=== PATIENT | male | born 1960 | race Caucasian/White ===

== ENCOUNTER 2018-04-30 10:04 | Inpatient (IN) | payer BC, OTHER ==
[2018-04-30 10:12] VITALS: BMI 31.4
--- NOTE | 2018-04-30 10:39 | PDOC ---
History of Present Illness - General Chief Complaint: Wound Stated Complaint: SWOLLEN TOE Time Seen by Provider: 04/30/18 10:35 History Source: Patient Exam Limitations: No Limitations - History of Present Illness Initial Comments: 04/30/18 11:50 Patient is a 58-year-old male past medical history of insulin dependent diabetes , who presents to the emergency department today for right foot pain and redness. Patient states approximately 8 days ago stubbed his right toe. He states after that he noticed redness and bruising to the site. Patient states that the foot and became warm and he was concerned he had an infection of the foot. He states that he was seen at [facility]. He was treated with 1 dose of IV antibiotics and sent home on Augmentin. Patient has taken 2 doses at home. He states that the redness has since gotten worse. He also states that the pain has gotten worse despite treatment. He states that his sugars have been generally well controlled. Denies fevers, chills, shortness of breath, nausea, vomiting, numbness and tingling to the extremity, weakness to the extremity. Past History - Travel Traveled outside of the country in the last 30 days: No Close contact w/someone who was outside of country & ill: No - Past Medical History Allergies/Adverse Reactions: Allergies Allergy/AdvReac Type Severity Reaction Status Date / Time No Known Allergies Allergy Verified 04/30/18 10:11 Home Medications: Ambulatory Orders Amoxicillin/Potassium Clav [Amox-Clav 875-125 mg Tablet] 1 each PO DAILY Aspirin [ASA -] 162 mg PO DAILY 04/30/18 Diltiazem Cd [Cardizem Cd -] 240 mg PO DAILY 04/30/18 Insulin Degludec [Tresiba Flextouch U-100] 30 unit SQ HS 04/30/18 Meloxicam [Mobic] 15 mg PO DAILY 04/30/18 Semaglutide [Ozempic] 0.25 mg SQ WEEKLY 04/30/18 Tramadol HCl [Ultram] 50 mg PO DAILY 04/30/18 COPD: No Diabetes: Yes HTN: Yes - Suicide/Smoking/Psychosocial Hx Smoking History: Never smoked Information on smoking cessation initiated: No Hx Alcohol Use: No Drug/Substance Use Hx: No Substance Use Type: None Review of Systems - Review of Systems Able to Perform ROS?: Yes Comments:: 04/30/18 10:38 CONSTITUTIONAL: Absent: fever, chills, diaphoresis, generalized weakness, malaise, loss of appetite HEENT: Absent: rhinorrhea, nasal congestion, throat pain, throat swelling, difficulty swallowing, mouth swelling, ear pain, eye pain, visual Changes CARDIOVASCULAR: Absent: chest pain, loss of consciousness, palpitations, irregular heart rate, peripheral edema RESPIRATORY: Absent: cough, shortness of breath, dyspnea with exertion, orthopnea, wheezing, stridor, hemoptysis GASTROINTESTINAL: Absent: abdominal pain, abdominal distension, nausea, vomiting, diarrhea, constipation, melena, hematochezia GENITOURINARY: Absent: dysuria, frequency, urgency, hesitancy, hematuria, flank pain, genital pain MUSCULOSKELETAL: Present: R foot pain/R fifth toe pain Absent: arthralgia, joint swelling SKIN: Present: redness to R foot Absent: rash, itching, pallor HEMATOLOGIC/IMMUNOLOGIC: Absent: easy bleeding, easy bruising, lymphadenopathy, frequent infections ENDOCRINE: Absent: unexplained weight gain, unexplained weight loss, heat intolerance, cold intolerance NEUROLOGIC: Absent: headache, focal weakness or paresthesias, dizziness, unsteady gait, seizure, mental status changes, bladder or bowel incontinence PSYCHIATRIC: Absent: anxiety, depression, suicidal or homicidal ideation, hallucinations. Is the patient limited Azeri proficient: No *Physical Exam - Vital Signs Last Vital Signs Temp Pulse Resp BP Pulse Ox 98.1 F 79 19 159/94 100 04/30/18 10:09 04/30/18 10:09 04/30/18 10:09 04/30/18 10:09 04/30/18 10:09 - Physical Exam Comments: 04/30/18 10:39 GENERAL: Well developed, well nourished. Awake and alert. No acute distress. HEENT: Normocephalic, atraumatic. PERRLA, EOMI. No conjunctival pallor. Sclera are non- icteric. Moist mucous membranes. Oropharynx is clear. NECK: Supple. Full ROM. No JVD. Carotid pulses 2+ and symmetric, without bruits. No thyromegaly. No lymphadenopathy. CARDIOVASCULAR: Regular rate and rhythm. No murmurs, rubs, or gallops. Distal pulses are 2+ and symmetric. PULMONARY: No evidence of respiratory distress. Lungs clear to auscultation bilaterally. No wheezing, rales or rhonchi. ABDOMINAL: Soft. Non-tender. Non-distended. No rebound or guarding. No organomegaly. Normoactive bowel sounds. MUSCULOSKELETAL Normal range of motion at all joints. TTP of the base of the 5th toe with bruising. No CVA tenderness. EXTREMITIES: No cyanosis. No clubbing. No edema. No calf tenderness. SKIN: Bruising to the base of the 5th toe. Erythema to the ventral aspect of the R 5th toe extending to the proximal foot measuring about 5cm ovoid in shape. Warm and dry. Normal capillary refill. No jaundice. NEUROLOGICAL: Alert, awake, appropriate. Cranial nerves 2-12 intact. No deficits to light touch and temperature in face, upper extremities and lower extremities. No motor deficits in the in face, upper extremities and lower extremities. Normoreflexic in the upper and lower extremities. Normal speech. Toes are down- going bilaterally. Gait is normal without ataxia. PSYCHIATRIC: Cooperative. Good eye contact. Appropriate mood and affect. ED Treatment Course - LABORATORY CBC & Chemistry Diagram: 04/30/18 11:30 04/30/18 11:30 Medical Decision Making - Medical Decision Making 04/30/18 11:52 Patient is a 58-year-old male past medical history of insulin-dependent diabetes , who presents to the emergency department today for right foot pain and redness status post 8 days after injury. -On exam patient with bruising and erythema to the right fifth toe streaking up the ventral aspect of the right foot extending to the base of the ankle. -Concerned for cellulitis/osteo in a diabetic patient; appears the patient has failed outpatient antibiotics reports worsening redness and pain. -Plan as follows: Labs, urine, EKG, IV antibiotics, pain control, foot x-ray -Most likely admission for failed outpatient management of cellulitis. 04/30/18 14:18 -WBC count is 13.8 despite out patient abx treatment. Oxycodone given for pain control -X-ray with no evidence of air, fracture, or osteo -Vanc 1g and zosyn 3.375g given for abx in ED -Non-fasting sugar 135 -Pt to be admitted for failed outpatient management. Case discussed with Dr. Alejandre from [facility] who accepts the patient. Requesting consults for ID and podietry at this time. *DC/Admit/Observation/Transfer Diagnosis at time of Disposition: Hx of insulin dependent diabetes mellitus Cellulitis Qualifiers: Site of cellulitis: extremity Site of cellulitis of extremity: lower extremity Laterality: right Qualified Code(s): L03.115 - Cellulitis of right lower limb - Discharge Dispostion Condition at time of disposition: Stable Decision to Admit order: Yes - Referrals Referrals: ON STAFF,NOT [Primary Care Provider] - - Patient Instructions - Post Discharge Activity
[2018-04-30] MEDS ORDERED: ACETAMINOPHEN 1000 MG/100 ML VIAL (NON FORMULARY) IVPB ONE (11:27)
--- NOTE | 2018-04-30 11:34 | PDOC ---
*Physical Exam - Vital Signs Last Vital Signs Temp Pulse Resp BP Pulse Ox 98.1 F 79 19 159/94 100 04/30/18 10:09 04/30/18 10:09 04/30/18 10:09 04/30/18 10:09 04/30/18 10:09 Medical Decision Making - Medical Decision Making 04/30/18 11:33 Pt seen by the Advanced Practice Provider under my direct supervision Ancillary studies reviewed I agree with plan as outlined by the Advanced Practice Provider GRECIA Iqbal
[2018-04-30] MEDS ORDERED: ACETAMINOPHEN INJECTION 100 ML IVPB ONE (11:41)
[2018-04-30 11:54] LABS: BASO % 0.3 % (0-2.0); EOS % 0.6 % (0-4.5); HEMATOCRIT 53.4 % (35.4-49); HEMOGLOBIN 17.8 GM/dL (11.7-16.9); LYMPH % 6.3 % (8-40); MCH 29.5 pg (25.7-33.7); MCHC 33.4 g/dl (32.0-35.9); MEAN CELL VOLUME 88.2 fl (80-96); MEAN PLT VOLUME 9.2 fl (7.5-11.1); MONO % 9.8 % (3.8-10.2); PLATELET COUNT 183 K/MM3 (134-434); RBC 6.05 M/mm3 (4.00-5.60); RDW 14.1 % (11.9-15.9); WHITE BLOOD COUNT 13.8 K/mm3 (4.0-10.0)
[2018-04-30 12:02] LABS: ALBUMIN 3.8 g/dl (3.4-5.0); ALK PHOS 87 U/L (45-117); ANION GAP 7 MMOL/L (8-16); BILIRUBIN,TOTAL 1.4 mg/dL (0.2-1); BLOOD UREA NITROGEN 33 mg/dL (7-18); CALCIUM 9.2 mg/dL (8.5-10.1); CHLORIDE 106 mmol/L (98-107); CO2 28 mmol/L (21-32); CREATININE 1.1 mg/dL (0.55-1.3); GLUCOSE,RANDOM 135 mg/dL (74-106); POTASSIUM 3.7 mmol/L (3.5-5.1); SGOT/AST 23 U/L (15-37); SGPT/ALT 36 U/L (13-61); SODIUM 141 mmol/L (136-145); TOT PROT 7.3 g/dl (6.4-8.2)
[2018-04-30] MEDS ORDERED: PIPERACILLIN/TAZOB 3.375 GM 3.375 GM in DEXTROSE 5%-WATER - 50 ML IVPB ONE (12:53)
[2018-04-30] MEDS ORDERED: VANCOMYCIN 1,000 MG in DEXTROSE 5%-WATER - 250 ML IVPB ONE (12:53)
[2018-04-30] MEDS ORDERED: PIPERACILLIN/TAZOB 3.375 GM 3.375 GM/50 ML BAG IVPB ONE (12:59)
[2018-04-30] MEDS ORDERED: oxyCODONE HCL 5 MG TABLET PO ONE (13:39)
[2018-04-30] MEDS ORDERED: VANCOMYCIN 1 GRAM (PRE-DOCKED) 1,000 MG/250 ML BAG IVPB ONE (14:03)
--- NOTE | 2018-04-30 14:09 | HP ---
Admitting History and Physical - Admission Chief Complaint: Rt Foot Pain and swelling History of Present Illness: 58 yrs old man h/o HTN, long standing T2DM on Insulin, present with gradually worsening Rt foot pain swelling and erythema, patient says 8 days ago noticed pain in Rt 5th toe developed some erythema and , swelling and pain , patient remained symptomatic didn't take any abx remained symptomatic swelling extended upward till ankle with erythema nd pain also noticed bluish discoloration came to ED for evaluation, in the Ed elevated TWBC with Left shift considering Dibetic foot infection admitted for IV abx and to R/O OM. History Source: Patient - Past Medical History Cardiovascular: Yes: HTN, Hyperlipdemia Endocrine: Yes: Diabetes Mellitus - Smoking History Smoking history: Never smoked - Alcohol/Substance Use Hx Alcohol Use: No - Social History ADL: Independent History of Recent Travel: No Home Medications - Allergies Allergies/Adverse Reactions: Allergies Allergy/AdvReac Type Severity Reaction Status Date / Time No Known Allergies Allergy Verified 04/30/18 10:11 - Home Medications Home Medications: Ambulatory Orders Amoxicillin/Potassium Clav [Amox-Clav 875-125 mg Tablet] 1 each PO DAILY Aspirin [ASA -] 162 mg PO DAILY 04/30/18 Diltiazem Cd [Cardizem Cd -] 240 mg PO DAILY 04/30/18 Insulin Degludec [Tresiba Flextouch U-100] 30 unit SQ HS 04/30/18 Meloxicam [Mobic] 15 mg PO DAILY 04/30/18 Semaglutide [Ozempic] 0.25 mg SQ WEEKLY 04/30/18 Tramadol HCl [Ultram] 50 mg PO DAILY 04/30/18 Family Disease History - Family Disease History Family Disease History: Diabetes: Grandparent Review of Systems - Review of Systems Constitutional: reports: Fever. denies: Chills, Diaphoresis, Lethargy Eyes: denies: Blind Spots HENT: denies: Difficult Swallowing, Ear Discharge Neck: denies: Decreased ROM, Lumps, Pain on Movement Cardiovascular: reports: Edema. denies: Chest Pain, Palpitations Respiratory: denies: Cough, Exercise Intolerance, Hemoptysis Gastrointestinal: denies: Abdominal Pain, Bloating, Constipation, Diarrhea Genitourinary: denies: Burning, Discharge, Dysuria Musculoskeletal: denies: Back Pain, Crepitus Integumentary: reports: Blister, Other (RT ffot Cellulitis) Neurological: denies: Change in Speech, Confusion Endocrine: denies: Excessive Sweating, Flushing, Increased Hunger Psychiatric: denies: Altered Sleep Pattern, Anxiety, Depression Pain Intensity: 6 Physical Examination Vital Signs: Vital Signs Temperature 98.1 F 04/30/18 10:09 Pulse Rate 79 04/30/18 10:09 Respiratory Rate 19 04/30/18 10:09 Blood Pressure 159/94 04/30/18 10:09 O2 Sat by Pulse Oximetry (%) 100 04/30/18 10:09 Middle aged man not in distress HEENT: Mm moist no anemia, PERRLA, EOMI NECK: No JVD No Bruit CHEST: CTA B/L CVS: S1S2 R no m/g/r ABD: No distention, non tender Bs + EXT: Rt foot erythema and swelling on dorsum of foot arising from dorsal aspect of fth and 4tg toe with some blackening of skin pulses +, no sensory loss. 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 Labs: CBC, BMP CBC,CMP WBC 13.8 K/mm3 (4.0-10.0) H 04/30/18 11:30 RBC 6.05 M/mm3 (4.00-5.60) H 04/30/18 11:30 Hgb 17.8 GM/dL (11.7-16.9) H 04/30/18 11:30 Hct 53.4 % (35.4-49) H 04/30/18 11:30 MCV 88.2 fl (80-96) 04/30/18 11:30 MCH 29.5 pg (25.7-33.7) 04/30/18 11:30 MCHC 33.4 g/dl (32.0-35.9) 04/30/18 11:30 RDW 14.1 % (11.9-15.9) 04/30/18 11:30 Plt Count 183 K/MM3 (134-434) 04/30/18 11:30 MPV 9.2 fl (7.5-11.1) 04/30/18 11:30 Absolute Neuts (auto) 11.5 K/mm3 (1.5-8.0) H 04/30/18 11:30 Neutrophils % 83.0 % (42.8-82.8) H 04/30/18 11:30 Lymphocytes % 6.3 % (8-40) L 04/30/18 11:30 Monocytes % 9.8 % (3.8-10.2) 04/30/18 11:30 Eosinophils % 0.6 % (0-4.5) 04/30/18 11:30 Basophils % 0.3 % (0-2.0) 04/30/18 11:30 Nucleated RBC % 0 % (0-0) 04/30/18 11:30 Sodium 141 mmol/L (136-145) 04/30/18 11:30 Potassium 3.7 mmol/L (3.5-5.1) 04/30/18 11:30 Chloride 106 mmol/L (98-107) 04/30/18 11:30 Carbon Dioxide 28 mmol/L (21-32) 04/30/18 11:30 Anion Gap 7 MMOL/L (8-16) L 04/30/18 11:30 BUN 33 mg/dL (7-18) H 04/30/18 11:30 Creatinine 1.1 mg/dL (0.55-1.3) 04/30/18 11:30 Creat Clearance w eGFR > 60 (>60) 04/30/18 11:30 Random Glucose 135 mg/dL (74-106) H 04/30/18 11:30 Lactic Acid 1.2 mmol/L (0.4-2.0) 04/30/18 11:30 Calcium 9.2 mg/dL (8.5-10.1) 04/30/18 11:30 Total Bilirubin 1.4 mg/dL (0.2-1) H 04/30/18 11:30 AST 23 U/L (15-37) 04/30/18 11:30 ALT 36 U/L (13-61) 04/30/18 11:30 Alkaline Phosphatase 87 U/L (45-117) 04/30/18 11:30 Total Protein 7.3 g/dl (6.4-8.2) 04/30/18 11:30 Albumin 3.8 g/dl (3.4-5.0) 04/30/18 11:30 Imaging - Results Chest X-ray: Report Reviewed (Rt Foot: No acute Pathology) X-ray: Report Reviewed EKG: Report Reviewed (NSR aat [address]-t changes poor progression of r wave no basline available for comparison) Problem List - Problems (1) Cellulitis Assessment/Plan: Considering H/O DM and risk of polymicrobial organism, ID consult for empiric abx overage, Podiatry consult F/U ESR CRP Code(s): L03.90 - CELLULITIS, UNSPECIFIED Qualifiers: Site of cellulitis: extremity Site of cellulitis of extremity: lower extremity Laterality: right Qualified Code(s): L03.115 - Cellulitis of right lower limb (2) T2DM (type 2 diabetes mellitus) Assessment/Plan: on Insulin will F/U switch to Levimir and correction dose insulin Code(s): E11.9 - TYPE 2 DIABETES MELLITUS WITHOUT COMPLICATIONS (3) Dehydration Assessment/Plan: Elevated BUN, IV Hydration F/U BMP Code(s): E86.0 - DEHYDRATION (4) HTN (hypertension) Assessment/Plan: Resume all home meds Code(s): I10 - ESSENTIAL (PRIMARY) HYPERTENSION
[2018-04-30] MEDS ORDERED: ACETAMINOPHEN 1000 MG/100 ML VIAL (NON FORMULARY) IVPB PRN (14:53)
[2018-04-30] MEDS ORDERED: IBUPROFEN 400 MG TABLET (FP) PO PRN (14:53)
--- NOTE | 2018-04-30 17:10 | EKG ---
Test Reason : Blood Pressure : / mmHG Vent. Rate : 072 BPM Atrial Rate : 072 BPM P-R Int : 162 ms QRS Dur : 106 ms QT Int : 388 ms P-R-T Axes : 037 -51 -15 degrees QTc Int : 424 ms NORMAL SINUS RHYTHM LEFT AXIS DEVIATION ABNORMAL ECG NO PREVIOUS ECGS AVAILABLE Confirmed by GEETA DAS MD ([id number]) on 04/30/2018 5:10:22 PM Referred By: Confirmed By:GEETA DAS MD
[2018-04-30] MEDS ORDERED: SODIUM CHLORIDE 1,000 ML IV SCH (18:15)
--- NOTE | 2018-04-30 18:33 | PN ---
Progress Note (short form) - Note Progress Note: ID consult dictated cellulitis R foot leukocytosis R/O sepsis secondary to skin source R/O osteomyelitis Diabetes mellitus Await c/s ESR CRP Empiric vancomycin/ zosyn
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
[2018-04-30] MEDS: VANCOMYCIN 1 GRAM (PRE-DOCKED) 1,000 MG/250 ML BAG IVPB SCH (19:00)
[2018-04-30] MEDS ORDERED: traMADol HCL 50 MG TABLET PO ONE (21:11)
[2018-04-30] MEDS: INSULIN SLIDING SCALE (NOVOLOG) 1 VIAL SQ SCH (21:20)
[2018-04-30] MEDS ORDERED: INSULIN (LEVEMIR) 100 UNITS/ML UNITS SQ SCH (22:00)
[2018-05-01] MEDS ORDERED: PIPERACILLIN/TAZOBACTAM 3.375 GM VIAL IVPB ONE ×3 (01:09→16:54)
[2018-05-01] MEDS ORDERED: DEXTROSE 5%-WATER - 50 ML IVPB ONE ×3 (01:10→16:54)
[2018-05-01] MEDS: PIPERACILLIN/TAZOB 3.375 GM 3.375 GM in DEXTROSE 5%-WATER - 50 ML IVPB SCH ×3 (01:31→17:03)
[2018-05-01] MEDS: VANCOMYCIN 1 GRAM (PRE-DOCKED) 1,000 MG/250 ML BAG IVPB SCH ×2 (06:02→17:34)
[2018-05-01] MEDS: INSULIN SLIDING SCALE (NOVOLOG) 1 VIAL SQ SCH ×3 (06:20→16:24)
[2018-05-01 07:41] LABS: BASO % 0.4 % (0-2.0); EOS % 1.3 % (0-4.5); HEMATOCRIT 49.9 % (35.4-49); HEMOGLOBIN 16.9 GM/dL (11.7-16.9); LYMPH % 9.7 % (8-40); MCH 30.2 pg (25.7-33.7); MEAN PLT VOLUME 9.1 fl (7.5-11.1); MONO % 9.9 % (3.8-10.2); NEUT % 78.7 % (42.8-82.8); PLATELET COUNT 173 K/MM3 (134-434); RDW 13.8 % (11.9-15.9); WHITE BLOOD COUNT 10.1 K/mm3 (4.0-10.0)
[2018-05-01 07:44] LABS: ALBUMIN 3.2 g/dl (3.4-5.0); ALK PHOS 76 U/L (45-117); ANION GAP 5 MMOL/L (8-16); BILIRUBIN,TOTAL 0.9 mg/dL (0.2-1); BLOOD UREA NITROGEN 24 mg/dL (7-18); CALCIUM 8.1 mg/dL (8.5-10.1); CHLORIDE 108 mmol/L (98-107); CO2 30 mmol/L (21-32); CREATININE 0.9 mg/dL (0.55-1.3); GLUCOSE,RANDOM 78 mg/dL (74-106); POTASSIUM 4.3 mmol/L (3.5-5.1); SGOT/AST 20 U/L (15-37); SGPT/ALT 28 U/L (13-61); SODIUM 144 mmol/L (136-145); TOT PROT 6.3 g/dl (6.4-8.2)
[2018-05-01] MEDS ORDERED: traMADol HCL 50 MG TABLET PO PRN (08:54)
[2018-05-01] MEDS: traMADol HCL 50 MG TABLET PO PRN ×4 (09:00→21:04)
--- NOTE | 2018-05-01 09:05 | PN ---
Progress Note, Physician Chief Complaint: Mr Leary complains of pain in his left foot. No cp, sob, n/v. - Current Medication List Current Medications: Active Medications Acetaminophen (Ofirmev Injection -) 1,000 mg IVPB Q6H PRN PRN Reason: PAIN LEVEL 6-10 Last Admin: 04/30/18 20:06 Dose: 1,000 mg Aspirin (Asa -) 162 mg PO DAILY [facility] Diltiazem HCl (Cardizem Cd -) 240 mg PO DAILY [facility] Sodium Chloride (Normal Saline -) 1,000 mls @ 75 mls/hr IV ASDIR [facility] Last Admin: 04/30/18 18:58 Dose: 75 mls/hr Vancomycin HCl (Vancomycin (Pre-Docked)) 1,000 mg in 250 mls @ 166.667 mls/hr IVPB Q12H [facility]; Protocol Last Admin: 05/01/18 06:02 Dose: 166.667 mls/hr Piperacillin Sod/Tazobactam (Sod 3.375 gm/ Dextrose) 50 mls @ 100 mls/hr IVPB Q8H-IV [facility]; Protocol Last Admin: 05/01/18 01:31 Dose: 100 mls/hr Ibuprofen (Motrin -) 400 mg PO Q8H PRN PRN Reason: PAIN LEVEL 1-5 Last Admin: 05/01/18 06:13 Dose: 400 mg Insulin Aspart (Novolog Vial Sliding Scale -) 1 vial SQ TIDAC [facility]; Protocol Last Admin: 05/01/18 06:20 Dose: Not Given Insulin Detemir (Levemir Vial) 30 units SQ HS [facility] Last Admin: 04/30/18 21:22 Dose: 30 units Tramadol HCl (Ultram -) 50 mg PO Q4H PRN PRN Reason: PAIN LEVEL 6-10 - Objective Vital Signs: Vital Signs Temperature 36.7 C 05/01/18 05:59 Pulse Rate 68 05/01/18 05:59 Respiratory Rate 20 05/01/18 05:59 Blood Pressure 140/77 05/01/18 05:59 O2 Sat by Pulse Oximetry (%) 98 04/30/18 15:25 Constitutional: Yes: No Distress, Calm, Obese Cardiovascular: Yes: Regular Rate and Rhythm. No: Gallop, Murmur, Rub Respiratory: Yes: Regular, CTA Bilaterally. No: Rales, Rhonchi, Wheezes Gastrointestinal: Yes: Normal Bowel Sounds, Soft. No: Distention, Tenderness Extremities: Yes: Other (ulceration between 4-5 RLE phalanges with blackness) Edema: No Labs: CBC, BMP 05/01/18 06:00 05/01/18 06:00 Problem List - Problems (1) Cellulitis Assessment/Plan: -dark redness with ulceration in between 4-5 phalanges -continue vancomycin and zosyn -lower suspicion for osteomyelitis but follow up ESR -ID following -podiatry consulted Code(s): L03.90 - CELLULITIS, UNSPECIFIED Qualifiers: Site of cellulitis: extremity Site of cellulitis of extremity: lower extremity Laterality: right Qualified Code(s): L03.115 - Cellulitis of right lower limb (2) Dehydration Assessment/Plan: -much improved -stop IVF and encourage po intake Code(s): E86.0 - DEHYDRATION (3) HTN (hypertension) Assessment/Plan: -continue cardizem -elevated, ? secondary to pain and/or IVF -stop IVF -control pain -may need additional antihypertensive -consider adding ARB Code(s): I10 - ESSENTIAL (PRIMARY) HYPERTENSION (4) T2DM (type 2 diabetes mellitus) Assessment/Plan: -continue current regimen -well controlled Code(s): E11.9 - TYPE 2 DIABETES MELLITUS WITHOUT COMPLICATIONS
[2018-05-01] MEDS ORDERED: ASPIRIN 81 MG CHEWABLE TABLETS PO SCH (10:00)
[2018-05-01] MEDS ORDERED: traMADol HCL 50 MG TABLET PO SCH (10:00)
--- NOTE | 2018-05-01 11:32 | CONSULT ---
Consult Consult Specialty:: Podiatry Reason for Consultation:: Abscess right foot - History of Present Illness Chief Complaint: Banged his foot and scratched in between his toes 4&5 right 8- 9 days ago. No improvement referred by Dr. Ribeiro to [facility]. - History Source History Provided By: Patient Limitations to Obtaining History: No Limitations - Past Medical History Cardio/Vascular: Yes: HTN, Hyperlipdemia Endocrine: Yes: Diabetes Mellitus - Alcohol/Substance Use Hx Alcohol Use: No - Smoking History Smoking history: Never smoked - Social History ADL: Independent History of Recent Travel: No Home Medications - Allergies Allergies/Adverse Reactions: Allergies Allergy/AdvReac Type Severity Reaction Status Date / Time No Known Allergies Allergy Verified 04/30/18 10:11 - Home Medications Home Medications: Ambulatory Orders Amoxicillin/Potassium Clav [Amox-Clav 875-125 mg Tablet] 1 each PO DAILY Aspirin [ASA -] 162 mg PO DAILY 04/30/18 Diltiazem Cd [Cardizem Cd -] 240 mg PO DAILY 04/30/18 Insulin Degludec [Tresiba Flextouch U-100] 30 unit SQ HS 04/30/18 Meloxicam [Mobic] 15 mg PO DAILY 04/30/18 Semaglutide [Ozempic] 0.25 mg SQ WEEKLY 04/30/18 Tramadol HCl [Ultram] 50 mg PO DAILY 04/30/18 Family Disease History - Family Disease History Family Disease History: Diabetes: Grandparent, Father Physical Exam Vital Signs: Vital Signs Temperature 98.4 F 05/01/18 09:00 Pulse Rate 66 05/01/18 09:00 Respiratory Rate 20 05/01/18 09:00 Blood Pressure 157/85 05/01/18 09:00 O2 Sat by Pulse Oximetry (%) 99 05/01/18 09:00 Wound/Incision: Yes: Other (abscess 4th interspace right, +severe tender, discoloration of medial 5th toe,) Labs: CBC, BMP 05/01/18 06:00 05/01/18 06:00 Assessment/Plan severe pain abscess Discussed options and risks. Pt fully understood and agreed to immediate I&D due to pain and color changes of his toe as he wanted to try to save toe. Verbally consented to I&D. Had breakfast so agreed to straight local procedure.
[2018-05-01] MEDS ORDERED: BUPIVACAINE HCL/PF 0.5% (5MG/ML) 10 ML VIAL ONE (11:33)
[2018-05-01] MEDS ORDERED: LIDOCAINE HCL 1%, 10 MG/ML (20ML VIAL) ONE (11:33)
[2018-05-01] MEDS ORDERED: LIDOCAINE HCL 1%, 10 MG/ML (50 mL VIAL) IJ ONE ×3 (12:03)
[2018-05-01] MEDS ORDERED: BUPIVACAINE HCL/PF 0.5% (5MG/ML) 10 ML VIAL IJ ONE ×2 (12:03)
[2018-05-01] MEDS ORDERED: ACETAMINOPHEN WITH CODEINE 300MG/30MG TABLET PO PRN (12:58)
[2018-05-01] MEDS ORDERED: ACETAMINOPHEN 1000 MG/100 ML VIAL (NON FORMULARY) IVPB PRN (13:45)
[2018-05-01] MEDS: SODIUM CHLORIDE 1,000 ML IV SCH (14:46)
--- NOTE | 2018-05-01 15:05 | PN ---
Progress Note (short form) - Note Progress Note: S/P I&D R foot abscess Post op dressing in place C/O R foot pain No c/o fever/ chills Tolerating antibiotics Afebrile WBC improved 10.1 Cultures pending Anicteric cor S1S2 Lungs clear abdomen soft, non tender post op dressing in place R foot ESR 8 CRP 3.3 S/P I&D R foot abscess Diabetes mellitus Await operative cultures Continue empiric zosyn/ vancomycin
--- NOTE | 2018-05-01 20:21 | OP ---
Operative Note - Note: Operative Date: 05/01/18 Pre-Operative Diagnosis: Abscess right foot Operation: Incision and drainage of abscess. 06/26" packing. wound culture deep Findings: abscess 4th interspace Post-Operative Diagnosis: Same as Pre-op Surgeon: Sravanthi Crane Anesthesia: Local Estimated Blood Loss (mls): 10 Drains & Tubes with Location: 06/26" plain packing Operative Report Dictated: Yes
[2018-05-01] MEDS: INSULIN (LEVEMIR) 100 UNITS/ML UNITS SQ SCH (21:04)
[2018-05-01] MEDS: ZOLPIDEM TARTRATE 5 MG TABLET PO PRN (21:04)
[2018-05-02] MEDS ORDERED: PIPERACILLIN/TAZOBACTAM 3.375 GM VIAL IVPB ONE ×3 (01:12→16:42)
[2018-05-02] MEDS ORDERED: DEXTROSE 5%-WATER - 50 ML IVPB ONE ×3 (01:12→16:42)
[2018-05-02] MEDS: PIPERACILLIN/TAZOB 3.375 GM 3.375 GM in DEXTROSE 5%-WATER - 50 ML IVPB SCH ×3 (01:51→16:59)
[2018-05-02] MEDS: SODIUM CHLORIDE 1,000 ML IV SCH ×2 (01:52→19:32)
[2018-05-02] MEDS: VANCOMYCIN 1 GRAM (PRE-DOCKED) 1,000 MG/250 ML BAG IVPB SCH ×2 (06:01→19:32)
[2018-05-02] MEDS: INSULIN SLIDING SCALE (NOVOLOG) 1 VIAL SQ SCH ×3 (06:43→16:58)
[2018-05-02] MEDS: traMADol HCL 50 MG TABLET PO PRN ×3 (07:51→20:13)
[2018-05-02 08:05] LABS: BASO % 0.2 % (0-2.0); EOS % 0.4 % (0-4.5); HEMATOCRIT 52.3 % (35.4-49); HEMOGLOBIN 17.4 GM/dL (11.7-16.9); LYMPH % 12.4 % (8-40); MCH 29.4 pg (25.7-33.7); MCHC 33.3 g/dl (32.0-35.9); MEAN CELL VOLUME 88.2 fl (80-96); MEAN PLT VOLUME 8.9 fl (7.5-11.1); MONO % 8.2 % (3.8-10.2); NEUT % 78.8 % (42.8-82.8); PLATELET COUNT 198 K/MM3 (134-434); RBC 5.93 M/mm3 (4.00-5.60); RDW 14.1 % (11.9-15.9); WHITE BLOOD COUNT 12.4 K/mm3 (4.0-10.0)
[2018-05-02 08:29] LABS: ANION GAP 8 MMOL/L (8-16); BLOOD UREA NITROGEN 16 mg/dL (7-18); CALCIUM 8.2 mg/dL (8.5-10.1); CHLORIDE 107 mmol/L (98-107); CO2 28 mmol/L (21-32); CREATININE 0.8 mg/dL (0.55-1.3); GLUCOSE,RANDOM 123 mg/dL (74-106); MAGNESIUM 2.1 mg/dL (1.8-2.4); PHOSPHOROUS 3.4 mg/dL (2.5-4.9); SODIUM 143 mmol/L (136-145)
--- NOTE | 2018-05-02 09:51 | PN ---
Progress Note (short form) - Note Progress Note: Patient seen in bed. Pain has greatly improved. vss, tmax 98.2 +dressing clean dry and intact normal post op Dressing change and packing pull tomorrow.
[2018-05-02] MEDS: ASPIRIN 81 MG CHEWABLE TABLETS PO SCH (10:56)
--- NOTE | 2018-05-02 11:07 | PN ---
Progress Note, Physician Chief Complaint: Mr Leary says the pain is much improved, mainly feels it when his foot hangs off the bed. Denies cp, sob, n/v. - Current Medication List Current Medications: Active Medications Acetaminophen (Ofirmev Injection -) 1,000 mg IVPB Q6H PRN PRN Reason: PAIN LEVEL 6-10 Aspirin (Asa -) 162 mg PO DAILY [facility] Last Admin: 05/02/18 10:56 Dose: 81 mg Diltiazem HCl (Cardizem Cd -) 240 mg PO DAILY [facility] Last Admin: 05/02/18 10:56 Dose: 240 mg Sodium Chloride (Normal Saline -) 1,000 mls @ 75 mls/hr IV ASDIR [facility] Last Admin: 05/02/18 01:52 Dose: 75 mls/hr Vancomycin HCl (Vancomycin (Pre-Docked)) 1,000 mg in 250 mls @ 166.667 mls/hr IVPB Q12H [facility]; Protocol Last Admin: 05/02/18 06:01 Dose: 166.667 mls/hr Piperacillin Sod/Tazobactam (Sod 3.375 gm/ Dextrose) 50 mls @ 100 mls/hr IVPB Q8H-IV [facility]; Protocol Last Admin: 05/02/18 10:55 Dose: 100 mls/hr Insulin Aspart (Novolog Vial Sliding Scale -) 1 vial SQ TIDAC [facility]; Protocol Last Admin: 05/02/18 06:43 Dose: Not Given Insulin Detemir (Levemir Vial) 30 units SQ HS [facility] Last Admin: 05/01/18 21:04 Dose: 30 units Tramadol HCl (Ultram -) 50 mg PO Q4H PRN PRN Reason: PAIN 6-10; IF TYLENOL NT WORK Last Admin: 05/02/18 07:51 Dose: 50 mg Zolpidem Tartrate (Ambien -) 5 mg PO HS PRN PRN Reason: INSOMNIA Last Admin: 05/01/18 21:04 Dose: 5 mg - Objective Vital Signs: Vital Signs Temperature 36.6 C 05/02/18 06:01 Pulse Rate 69 05/02/18 06:01 Respiratory Rate 18 05/02/18 06:01 Blood Pressure 138/84 05/02/18 06:01 O2 Sat by Pulse Oximetry (%) 98 05/01/18 21:00 Constitutional: Yes: Well Nourished, No Distress, Calm Cardiovascular: Yes: Regular Rate and Rhythm. No: Gallop, Murmur, Rub Respiratory: Yes: Regular, CTA Bilaterally. No: Rales, Rhonchi, Wheezes Gastrointestinal: Yes: Normal Bowel Sounds, Soft. No: Distention, Tenderness Extremities: Yes: WNL Edema: No Labs: CBC, BMP 05/02/18 06:50 05/02/18 06:50 Problem List - Problems (1) Cellulitis Code(s): L03.90 - CELLULITIS, UNSPECIFIED Qualifiers: Site of cellulitis: extremity Site of cellulitis of extremity: lower extremity Laterality: right Qualified Code(s): L03.115 - Cellulitis of right lower limb (2) Dehydration Code(s): E86.0 - DEHYDRATION (3) HTN (hypertension) Code(s): I10 - ESSENTIAL (PRIMARY) HYPERTENSION (4) T2DM (type 2 diabetes mellitus) Code(s): E11.9 - TYPE 2 DIABETES MELLITUS WITHOUT COMPLICATIONS Assessment/Plan (1) Cellulitis Assessment/Plan: -appreciate podiatry assistance, s/p I&D -wound culture pending -continue vancomycin and zosyn per ID recommendations Code(s): L03.90 - CELLULITIS, UNSPECIFIED Qualifiers: Site of cellulitis: extremity Site of cellulitis of extremity: lower extremity Laterality: right Qualified Code(s): L03.115 - Cellulitis of right lower limb (2) Dehydration Assessment/Plan: -resolved Code(s): E86.0 - DEHYDRATION (3) HTN (hypertension) Assessment/Plan: -continue cardizem -improved today -monitor, may not need second agent Code(s): I10 - ESSENTIAL (PRIMARY) HYPERTENSION (4) T2DM (type 2 diabetes mellitus) Assessment/Plan: -continue current regimen -well controlled Code(s): E11.9 - TYPE 2 DIABETES MELLITUS WITHOUT COMPLICATIONS
--- NOTE | 2018-05-02 13:41 | PN ---
Progress Note, Physician History of Present Illness: C/O R foot pain when held in dependent position No c/o fever/ chills Cultures pending Tolerating antibiotics - Current Medication List Current Medications: Active Medications Acetaminophen (Ofirmev Injection -) 1,000 mg IVPB Q6H PRN PRN Reason: PAIN LEVEL 6-10 Aspirin (Asa -) 162 mg PO DAILY [facility] Last Admin: 05/02/18 10:56 Dose: 81 mg Diltiazem HCl (Cardizem Cd -) 240 mg PO DAILY [facility] Last Admin: 05/02/18 10:56 Dose: 240 mg Sodium Chloride (Normal Saline -) 1,000 mls @ 75 mls/hr IV ASDIR [facility] Last Admin: 05/02/18 01:52 Dose: 75 mls/hr Vancomycin HCl (Vancomycin (Pre-Docked)) 1,000 mg in 250 mls @ 166.667 mls/hr IVPB Q12H [facility]; Protocol Last Admin: 05/02/18 06:01 Dose: 166.667 mls/hr Piperacillin Sod/Tazobactam (Sod 3.375 gm/ Dextrose) 50 mls @ 100 mls/hr IVPB Q8H-IV [facility]; Protocol Last Admin: 05/02/18 10:55 Dose: 100 mls/hr Insulin Aspart (Novolog Vial Sliding Scale -) 1 vial SQ TIDAC [facility]; Protocol Last Admin: 05/02/18 13:34 Dose: Not Given Insulin Detemir (Levemir Vial) 30 units SQ HS [facility] Last Admin: 05/01/18 21:04 Dose: 30 units Tramadol HCl (Ultram -) 50 mg PO Q4H PRN PRN Reason: PAIN 6-10; IF TYLENOL NT WORK Last Admin: 05/02/18 07:51 Dose: 50 mg Zolpidem Tartrate (Ambien -) 5 mg PO HS PRN PRN Reason: INSOMNIA Last Admin: 05/01/18 21:04 Dose: 5 mg - Objective Vital Signs: Vital Signs Temperature 98.7 F 05/02/18 13:27 Pulse Rate 75 05/02/18 13:27 Respiratory Rate 18 05/02/18 13:27 Blood Pressure 154/96 05/02/18 13:27 O2 Sat by Pulse Oximetry (%) 98 05/01/18 21:00 Constitutional: Yes: No Distress Eyes: Yes: Conjunctiva Clear Cardiovascular: Yes: Regular Rate and Rhythm, S1, S2 Respiratory: Yes: CTA Bilaterally Gastrointestinal: Yes: Normal Bowel Sounds, Soft. No: Tenderness Extremities: Yes: Other (post op dressing in place) Labs: CBC, BMP 05/02/18 06:50 05/02/18 06:50 Assessment/Plan S/P I&D R foot abscess Cellulitis, foot Diabetes mellitus Await c/s Continue vancomycin/ zosyn
[2018-05-02] MEDS ORDERED: POTASSIUM CHLORIDE TABS 20 MEQ TABLET.ER (FP) PO ONE ×2 (21:30→23:33)
[2018-05-02] MEDS: KCL 10 MEQ IVPB 10 MEQ/100 ML INFUS.BAG IVPB SCH ×3 (21:40→23:23)
[2018-05-02] MEDS: INSULIN (LEVEMIR) 100 UNITS/ML UNITS SQ SCH (21:45)
[2018-05-02] MEDS: ZOLPIDEM TARTRATE 5 MG TABLET PO PRN (21:46)
[2018-05-03] MEDS ORDERED: PIPERACILLIN/TAZOBACTAM 3.375 GM VIAL IVPB ONE ×3 (01:06→17:02)
[2018-05-03] MEDS ORDERED: DEXTROSE 5%-WATER - 50 ML IVPB ONE ×3 (01:07→17:03)
[2018-05-03] MEDS: PIPERACILLIN/TAZOB 3.375 GM 3.375 GM in DEXTROSE 5%-WATER - 50 ML IVPB SCH ×3 (01:21→17:08)
[2018-05-03] MEDS: traMADol HCL 50 MG TABLET PO PRN ×4 (05:46→22:25)
[2018-05-03] MEDS: VANCOMYCIN 1 GRAM (PRE-DOCKED) 1,000 MG/250 ML BAG IVPB SCH ×2 (05:47→18:29)
[2018-05-03] MEDS: INSULIN SLIDING SCALE (NOVOLOG) 1 VIAL SQ SCH ×3 (06:39→17:09)
[2018-05-03 08:25] LABS: BASO % 0.7 % (0-2.0); EOS % 3.9 % (0-4.5); HEMATOCRIT 47.9 % (35.4-49); HEMOGLOBIN 16.1 GM/dL (11.7-16.9); LYMPH % 17.7 % (8-40); MCH 29.7 pg (25.7-33.7); MCHC 33.7 g/dl (32.0-35.9); MEAN CELL VOLUME 88.3 fl (80-96); MEAN PLT VOLUME 8.5 fl (7.5-11.1); MONO % 10.5 % (3.8-10.2); NEUT % 67.2 % (42.8-82.8); PLATELET COUNT 171 K/MM3 (134-434); RBC 5.42 M/mm3 (4.00-5.60); RDW 13.8 % (11.9-15.9); WHITE BLOOD COUNT 7.1 K/mm3 (4.0-10.0)
[2018-05-03 08:32] LABS: ANION GAP 6 MMOL/L (8-16); BLOOD UREA NITROGEN 15 mg/dL (7-18); CHLORIDE 110 mmol/L (98-107); CO2 28 mmol/L (21-32); CREATININE 0.9 mg/dL (0.55-1.3); GLUCOSE,RANDOM 134 mg/dL (74-106); MAGNESIUM 2.4 mg/dL (1.8-2.4); PHOSPHOROUS 2.2 mg/dL (2.5-4.9); SODIUM 144 mmol/L (136-145)
[2018-05-03] MEDS: ASPIRIN 81 MG CHEWABLE TABLETS PO SCH (09:38)
[2018-05-03] MEDS ORDERED: POTASSIUM CHLORIDE TABS 20 MEQ TABLET.ER (FP) PO SCH (10:00)
--- NOTE | 2018-05-03 11:56 | PN ---
Progress Note, Physician Chief Complaint: Mr Leary denies cp, sob, n/v. - Current Medication List Current Medications: Active Medications Acetaminophen (Ofirmev Injection -) 1,000 mg IVPB Q6H PRN PRN Reason: PAIN LEVEL 6-10 Aspirin (Asa -) 162 mg PO DAILY [facility] Last Admin: 05/03/18 09:38 Dose: 162 mg Diltiazem HCl (Cardizem Cd -) 240 mg PO DAILY [facility] Last Admin: 05/03/18 09:38 Dose: 240 mg Sodium Chloride (Normal Saline -) 1,000 mls @ 75 mls/hr IV ASDIR [facility] Last Admin: 05/02/18 19:32 Dose: 75 mls/hr Vancomycin HCl (Vancomycin (Pre-Docked)) 1,000 mg in 250 mls @ 166.667 mls/hr IVPB Q12H [facility]; Protocol Last Admin: 05/03/18 05:47 Dose: 166.667 mls/hr Piperacillin Sod/Tazobactam (Sod 3.375 gm/ Dextrose) 50 mls @ 100 mls/hr IVPB Q8H-IV [facility]; Protocol Last Admin: 05/03/18 09:39 Dose: 100 mls/hr Insulin Aspart (Novolog Vial Sliding Scale -) 1 vial SQ TIDAC [facility]; Protocol Last Admin: 05/03/18 06:39 Dose: Not Given Insulin Detemir (Levemir Vial) 30 units SQ HS [facility] Last Admin: 05/02/18 21:45 Dose: 30 units Potassium Phos/Sodium Phos (Phos-Nak Packet -) 1 packet PO DAILY [facility] Tramadol HCl (Ultram -) 50 mg PO Q4H PRN PRN Reason: PAIN 6-10; IF TYLENOL NT WORK Last Admin: 05/03/18 09:39 Dose: 50 mg Zolpidem Tartrate (Ambien -) 5 mg PO HS PRN PRN Reason: INSOMNIA Last Admin: 05/02/18 21:46 Dose: 5 mg - Objective Vital Signs: Vital Signs Temperature 36.7 C 05/03/18 05:42 Pulse Rate 69 05/03/18 05:42 Respiratory Rate 18 05/03/18 05:42 Blood Pressure 144/82 05/03/18 05:42 O2 Sat by Pulse Oximetry (%) 98 05/01/18 21:00 Constitutional: Yes: No Distress, Calm, Obese Cardiovascular: Yes: Regular Rate and Rhythm. No: Gallop, Murmur, Rub Respiratory: Yes: Regular, CTA Bilaterally. No: Rales, Rhonchi, Wheezes Gastrointestinal: Yes: Normal Bowel Sounds, Soft. No: Distention, Tenderness Extremities: Yes: Other (R foot wrapped) Edema: No Labs: CBC, BMP 05/03/18 06:59 05/03/18 06:59 Problem List - Problems (1) Cellulitis Code(s): L03.90 - CELLULITIS, UNSPECIFIED Qualifiers: Site of cellulitis: extremity Site of cellulitis of extremity: lower extremity Laterality: right Qualified Code(s): L03.115 - Cellulitis of right lower limb (2) Dehydration Code(s): E86.0 - DEHYDRATION (3) HTN (hypertension) Code(s): I10 - ESSENTIAL (PRIMARY) HYPERTENSION (4) T2DM (type 2 diabetes mellitus) Code(s): E11.9 - TYPE 2 DIABETES MELLITUS WITHOUT COMPLICATIONS Assessment/Plan (1) Cellulitis Assessment/Plan: -appreciate podiatry assistance, s/p I&D -wound culture pending -continue vancomycin and zosyn per ID recommendations Code(s): L03.90 - CELLULITIS, UNSPECIFIED Qualifiers: Site of cellulitis: extremity Site of cellulitis of extremity: lower extremity Laterality: right Qualified Code(s): L03.115 - Cellulitis of right lower limb (2) Dehydration Assessment/Plan: -resolved Code(s): E86.0 - DEHYDRATION (3) HTN (hypertension) Assessment/Plan: -continue cardizem -still elevated -will add cozaar as well Code(s): I10 - ESSENTIAL (PRIMARY) HYPERTENSION (4) T2DM (type 2 diabetes mellitus) Assessment/Plan: -continue current regimen -well controlled Code(s): E11.9 - TYPE 2 DIABETES MELLITUS WITHOUT COMPLICATIONS
[2018-05-03] MEDS: NAPH,MB-DB/K PH,MBDB POWDER PACKET PO SCH (13:46)
--- NOTE | 2018-05-03 14:32 | PN ---
Progress Note (short form) - Note Progress Note: Patient seen in bed. Minimal Pain. present. She told me that he Went to [facility] on 04/23 then went home and came back 04/24 to hospital. Was dc back to home with PO antibiotics. vss, tmax 98.2 +dressing clean dry and intact, +packing in place, +improved cellulitis, - drainage, -foul odor, wound culture pending, wbc=7.1 normal post op Packing pulled. Betadine sterile water irrigation. Betadine dressing applied. Awaiting wound culture results. Continue abx as per ID. Will follow. present throughout.
[2018-05-03] MEDS: LOSARTAN POTASSIUM 50 MG TABLET (FP) PO SCH (16:59)
[2018-05-03] MEDS: SODIUM CHLORIDE 1,000 ML IV SCH (17:09)
--- NOTE | 2018-05-03 20:01 | OP ---
DATE OF OPERATION: 05/01/2018 PREOPERATIVE DIAGNOSIS: Right foot 5th toe abscess. POSTOPERATIVE DIAGNOSIS: Right foot 5th toe abscess. PROCEDURE: Right foot 5th toe and 4th interspace incision and drainage. SURGEON: Sravanthi Crane DPM SENIOR AUDITOR: Stuart Alfaro DPM; Lyssa Bridges DPM, PGY-3 ANESTHESIA: Straight local. PATHOLOGY: Soft tissue, right foot. ESTIMATED BLOOD LOSS: 5 mL. HEMOSTASIS: Electrocautery. MATERIALS USED: Iodoform 1/4-inch packing and postoperative dressing such as Betadine-soaked Adaptic, Kerlix, ABD pad, and Matt bandage. INJECTABLES: 10 mL of a 1:1 mixture of 1% plain lidocaine and 0.5% Marcaine plain was used preoperatively, and 8.5 mL of 1% lidocaine plain used intraoperatively. CONDITION OF THE PATIENT: Stable. COMPLICATIONS: None. DESCRIPTION: The patient was brought to the operating room and placed on the operating table in a supine position. Local anesthesia was then obtained using a 1:1 mixture of 1% lidocaine plain and 0.5% Marcaine plain preoperatively. Total of 10 mL was infiltrated throughout the right foot surgical site. The right foot was then scrubbed, prepped and draped in the usual aseptic manner. Attention was first directed to the 4th interspace, where a linear incision was made at the site of the abscess on dorsal aspect of the 4th interspace going into the interspace and using a hemostat. The incision was deepened and a pocket of pus was noted, with 3 mL of purulence at the level of 4th interspace as well as 5th digit, right foot. Care was taken to identify neural and vascular structures. All bleeders were cauterized and ligated as necessary. Using a the wound bed was investigated more and no more pus was noted. At this time, the wound was irrigated with copious amount of normal saline with bacitracin in it. The remaining soft tissue appeared to be viable. Deep wound culture was taken and sent to Pathology. Then 8.5 mL of 1% lidocaine plain was injected intraoperatively. Upon completing the procedure, the wound was irrigated copiously again using normal saline with bacitracin in it, and iodoform packing was applied into the wound bed. Postoperative dressing such as Betadine-soaked Adaptic, 4 x 4 sterile gauze, and ABD pad, Kerlix and Matt bandage was applied to the right foot. Patient tolerated the procedure well and was transferred to the post-anesthesia care unit with vital signs stable and vascular status intact to the right lower extremity. Patient will be transferred to the floor once stable per Anesthesia, and will be followed by Podiatry and Anesthesia team. Lyssa Bridges DPM, PGY-3 dictating for DANIEL Balbuena DPM [id number]
[2018-05-03] MEDS: ZOLPIDEM TARTRATE 5 MG TABLET PO PRN (21:35)
[2018-05-03] MEDS: INSULIN (LEVEMIR) 100 UNITS/ML UNITS SQ SCH (21:35)
[2018-05-04] MEDS ORDERED: PIPERACILLIN/TAZOBACTAM 3.375 GM VIAL IVPB ONE ×3 (01:51→14:41)
[2018-05-04] MEDS ORDERED: DEXTROSE 5%-WATER - 50 ML IVPB ONE ×3 (01:51→14:41)
[2018-05-04] MEDS: PIPERACILLIN/TAZOB 3.375 GM 3.375 GM in DEXTROSE 5%-WATER - 50 ML IVPB SCH ×3 (02:43→17:02)
[2018-05-04 06:17] LABS: BASO % 0.7 % (0-2.0); EOS % 0.9 % (0-4.5); HEMATOCRIT 48.8 % (35.4-49); HEMOGLOBIN 16.7 GM/dL (11.7-16.9); LYMPH % 11.1 % (8-40); MCH 29.9 pg (25.7-33.7); MCHC 34.1 g/dl (32.0-35.9); MEAN CELL VOLUME 87.7 fl (80-96); MEAN PLT VOLUME 8.4 fl (7.5-11.1); MONO % 8.8 % (3.8-10.2); NEUT % 78.5 % (42.8-82.8); PLATELET COUNT 211 K/MM3 (134-434); RBC 5.57 M/mm3 (4.00-5.60); RDW 13.7 % (11.9-15.9); WHITE BLOOD COUNT 9.9 K/mm3 (4.0-10.0)
[2018-05-04] MEDS: VANCOMYCIN 1 GRAM (PRE-DOCKED) 1,000 MG/250 ML BAG IVPB SCH ×2 (06:41→18:10)
[2018-05-04 06:43] LABS: ANION GAP 7 MMOL/L (8-16); BLOOD UREA NITROGEN 16 mg/dL (7-18); CHLORIDE 109 mmol/L (98-107); CO2 27 mmol/L (21-32); CREATININE 0.9 mg/dL (0.55-1.3); GLUCOSE,RANDOM 111 mg/dL (74-106); MAGNESIUM 2.2 mg/dL (1.8-2.4); PHOSPHOROUS 3.2 mg/dL (2.5-4.9); POTASSIUM 3.7 mmol/L (3.5-5.1); SODIUM 142 mmol/L (136-145)
[2018-05-04] MEDS: INSULIN SLIDING SCALE (NOVOLOG) 1 VIAL SQ SCH ×3 (06:43→16:52)
[2018-05-04] MEDS: traMADol HCL 50 MG TABLET PO PRN ×4 (06:46→21:41)
[2018-05-04] MEDS: LOSARTAN POTASSIUM 50 MG TABLET (FP) PO SCH (09:25)
[2018-05-04] MEDS: ASPIRIN 81 MG CHEWABLE TABLETS PO SCH (09:25)
[2018-05-04] MEDS: NAPH,MB-DB/K PH,MBDB POWDER PACKET PO SCH (09:26)
--- NOTE | 2018-05-04 11:09 | PN ---
Progress Note, Physician - Current Medication List Current Medications: Active Medications Acetaminophen (Ofirmev Injection -) 1,000 mg IVPB Q6H PRN PRN Reason: PAIN LEVEL 6-10 Aspirin (Asa -) 162 mg PO DAILY [facility] Last Admin: 05/04/18 09:25 Dose: 162 mg Diltiazem HCl (Cardizem Cd -) 240 mg PO DAILY [facility] Last Admin: 05/04/18 09:25 Dose: 240 mg Sodium Chloride (Normal Saline -) 1,000 mls @ 75 mls/hr IV ASDIR [facility] Last Admin: 05/03/18 17:09 Dose: 75 mls/hr Vancomycin HCl (Vancomycin (Pre-Docked)) 1,000 mg in 250 mls @ 166.667 mls/hr IVPB Q12H [facility]; Protocol Last Admin: 05/04/18 06:41 Dose: 166.667 mls/hr Piperacillin Sod/Tazobactam (Sod 3.375 gm/ Dextrose) 50 mls @ 100 mls/hr IVPB Q8H-IV [facility]; Protocol Last Admin: 05/04/18 09:26 Dose: 100 mls/hr Insulin Aspart (Novolog Vial Sliding Scale -) 1 vial SQ TIDAC [facility]; Protocol Last Admin: 05/04/18 06:43 Dose: Not Given Insulin Detemir (Levemir Vial) 30 units SQ HS [facility] Last Admin: 05/03/18 21:35 Dose: 30 units Losartan Potassium (Cozaar -) 50 mg PO DAILY [facility] Last Admin: 05/04/18 09:25 Dose: 50 mg Potassium Phos/Sodium Phos (Phos-Nak Packet -) 1 packet PO DAILY [facility] Last Admin: 05/04/18 09:26 Dose: 1 packet Tramadol HCl (Ultram -) 50 mg PO Q4H PRN PRN Reason: PAIN 6-10; IF TYLENOL NT WORK Last Admin: 05/04/18 06:46 Dose: 50 mg Zolpidem Tartrate (Ambien -) 5 mg PO HS PRN PRN Reason: INSOMNIA Last Admin: 05/03/18 21:35 Dose: 5 mg - Objective Vital Signs: Vital Signs Temperature 98.6 F 05/04/18 08:41 Pulse Rate 71 05/04/18 08:41 Respiratory Rate 18 05/04/18 08:41 Blood Pressure 158/81 05/04/18 08:41 O2 Sat by Pulse Oximetry (%) 98 05/01/18 21:00 Middle aged man not in distress HEENT: Mm moist no anemia, PERRLA, EOMI NECK: No JVD No Bruit CHEST: CTA B/L CVS: S1S2 R no m/g/r ABD: No distention, non tender Bs + EXT: Rt foot erythema and swelling on dorsum of foot improving [employer]: AOX3 non focal Labs: CBC, BMP 05/04/18 06:00 05/04/18 06:00 Problem List - Problems (1) Cellulitis Assessment/Plan: S/P I and D on IV Zosyn and vancomycinf F/U ID Code(s): L03.90 - CELLULITIS, UNSPECIFIED Qualifiers: Site of cellulitis: extremity Site of cellulitis of extremity: lower extremity Laterality: right Qualified Code(s): L03.115 - Cellulitis of right lower limb (2) T2DM (type 2 diabetes mellitus) Assessment/Plan: on Insulin will F/U switch to Levimir and correction dose insulin Code(s): E11.9 - TYPE 2 DIABETES MELLITUS WITHOUT COMPLICATIONS (3) Dehydration Assessment/Plan: improved with Hydration Code(s): E86.0 - DEHYDRATION (4) HTN (hypertension) Assessment/Plan: Resume all home meds Code(s): I10 - ESSENTIAL (PRIMARY) HYPERTENSION
[2018-05-04] MEDS ORDERED: BISACODYL 5 MG TABLET.DR (FP) PO ONE (14:30)
[2018-05-04] MEDS: SODIUM CHLORIDE 1,000 ML IV SCH (14:38)
--- NOTE | 2018-05-04 19:30 | PN ---
Progress Note (short form) - Note Progress Note: Patient seen in bed. No pain. vss, tmax 98.6 +dressing clean dry and intact, +improved cellulitis, -drainage, -foul odor, wound culture preliminary, wbc=9.9 normal post op Betadine dressing applied. Awaiting wound culture final. Continue abx as per ID. Will follow.
[2018-05-04] MEDS: INSULIN (LEVEMIR) 100 UNITS/ML UNITS SQ SCH (21:37)
[2018-05-04] MEDS: ZOLPIDEM TARTRATE 5 MG TABLET PO PRN (21:42)
[2018-05-05] MEDS ORDERED: PIPERACILLIN/TAZOBACTAM 3.375 GM VIAL IVPB ONE ×3 (01:45→16:39)
[2018-05-05] MEDS ORDERED: DEXTROSE 5%-WATER - 50 ML IVPB ONE ×3 (01:46→16:40)
[2018-05-05] MEDS: PIPERACILLIN/TAZOB 3.375 GM 3.375 GM in DEXTROSE 5%-WATER - 50 ML IVPB SCH ×3 (01:51→17:01)
[2018-05-05] MEDS: traMADol HCL 50 MG TABLET PO PRN ×3 (01:53→10:31)
[2018-05-05] MEDS: VANCOMYCIN 1 GRAM (PRE-DOCKED) 1,000 MG/250 ML BAG IVPB SCH ×2 (06:18→17:41)
[2018-05-05] MEDS: INSULIN SLIDING SCALE (NOVOLOG) 1 VIAL SQ SCH ×3 (06:25→16:11)
[2018-05-05 06:44] LABS: BASO % 0.4 % (0-2.0); EOS % 0.1 % (0-4.5); HEMATOCRIT 49.1 % (35.4-49); HEMOGLOBIN 16.6 GM/dL (11.7-16.9); LYMPH % 7.9 % (8-40); MCH 29.5 pg (25.7-33.7); MCHC 33.8 g/dl (32.0-35.9); MEAN CELL VOLUME 87.4 fl (80-96); MEAN PLT VOLUME 8.8 fl (7.5-11.1); MONO % 6.2 % (3.8-10.2); NEUT % 85.4 % (42.8-82.8); PLATELET COUNT 212 K/MM3 (134-434); RBC 5.62 M/mm3 (4.00-5.60); RDW 13.7 % (11.9-15.9)
[2018-05-05 07:09] LABS: ANION GAP 6 MMOL/L (8-16); BLOOD UREA NITROGEN 18 mg/dL (7-18); CALCIUM 8.3 mg/dL (8.5-10.1); CHLORIDE 109 mmol/L (98-107); CO2 29 mmol/L (21-32); CREATININE 0.9 mg/dL (0.55-1.3); GLUCOSE,RANDOM 158 mg/dL (74-106); POTASSIUM 3.7 mmol/L (3.5-5.1); SODIUM 145 mmol/L (136-145)
[2018-05-05] MEDS: NAPH,MB-DB/K PH,MBDB POWDER PACKET PO SCH (09:31)
[2018-05-05] MEDS: LOSARTAN POTASSIUM 50 MG TABLET (FP) PO SCH (09:31)
[2018-05-05] MEDS: ASPIRIN 81 MG CHEWABLE TABLETS PO SCH (09:31)
--- NOTE | 2018-05-05 15:23 | PN ---
Progress Note (short form) - Note Progress Note: Patient seen in bed. No pain. vss, tmax 98.1 +dressing clean dry and intact, +improved cellulitis, -drainage, -foul odor, wound culture preliminary, wbc=11.0, fusobacterium, enterococcus, strep. normal post op Betadine dressing applied. wound culture final. Continue abx as per ID. Will follow. ID recalled on case today spoke with Dr. Ocampo. .
[2018-05-05] MEDS: SODIUM CHLORIDE 1,000 ML IV SCH (15:32)
--- NOTE | 2018-05-05 17:44 | PN ---
Progress Note (short form) - Note Progress Note: feels well wants to go home Vital Signs Period Temp Pulse Resp BP Sys/Harmon Pulse Ox Last 24 Hr 98 F-98.9 F 61-98 18-20 138-160/67-92 96-98 cor-rrr lungs clear abd soft,nt ext dressing intact CBC, BMP 05/05/18 06:00 05/05/18 06:00 Microbiology 05/01/18 12:18 Abscess Gram Stain - Final 05/01/18 12:18 Abscess Wound Culture - Final Fusobacterium Nucleatum Enterococcus Faecalis Strep Agalactiae Group B 04/30/18 12:00 Blood - Peripheral Venous Blood Culture - Final NO GROWTH AFTER 5 DAYS INCUBATION 04/30/18 11:30 Blood - Peripheral Venous Blood Culture - Final NO GROWTH AFTER 5 DAYS INCUBATION a/p d/w Dr Crane wound culture reviewed- will switch to unasyn dressing just done will examine wound in am
[2018-05-05] MEDS: AMPICILLIN NA/SULBACTAM NA 3 GM in SODIUM CHLORIDE 100 ML IVPB SCH (18:24)
--- NOTE | 2018-05-05 18:51 | PN ---
Progress Note (short form) - Note Progress Note: Subjective: seen earlier this am. pain is tolerable. no fever Objective: Vital Signs: Last Vital Signs Temp Pulse Resp BP Pulse Ox 98.1 F 61 18 148/76 98 05/05/18 17:35 05/05/18 17:35 05/05/18 17:35 05/05/18 17:35 05/05/18 09:00 Laboratory Results - last 24 hr 05/04/18 05/05/18 05/05/18 21:36 06:00 06:00 WBC 11.0 H RBC 5.62 H Hgb 16.6 Hct 49.1 H MCV 87.4 MCH 29.5 MCHC 33.8 RDW 13.7 Plt Count 212 MPV 8.8 Absolute Neuts (auto) 9.4 H Neutrophils % 85.4 H Lymphocytes % 7.9 L D Monocytes % 6.2 Eosinophils % 0.1 D Basophils % 0.4 Nucleated RBC % 0 Sodium 145 Potassium 3.7 Chloride 109 H Carbon Dioxide 29 Anion Gap 6 L BUN 18 Creatinine 0.9 Creat Clearance w eGFR > 60 POC Glucometer 176 Random Glucose 158 H Calcium 8.3 L 05/05/18 05/05/18 05/05/18 06:22 11:14 16:05 WBC RBC Hgb Hct MCV MCH MCHC RDW Plt Count MPV Absolute Neuts (auto) Neutrophils % Lymphocytes % Monocytes % Eosinophils % Basophils % Nucleated RBC % Sodium Potassium Chloride Carbon Dioxide Anion Gap BUN Creatinine Creat Clearance w eGFR POC Glucometer 169 152 183 Random Glucose Calcium Physical Exam: NAD ,, pleasant CV : RRR Lungs: CTAB Ext : no edema . R foot in a clean dressing ,not changed by Podiatry yet Assessment/Plan: 58 y/o man with h/o DM and HTN, who presented with worsening erythema and edema to the R foot and was found to have celllulitis with abscess formation . s/p I& D now 1- cellulites of R foot with abscess formation s/p I&D : - wound cx with strep, fusopacterium and E . Faecalis - appreciate ID help, unasyn - Dc IVF 2- DM : cont levemir and SSI 3- HTN: cont losartan and cardizem. dc IVF HLOC Visit type - Emergency Visit Emergency Visit: Yes ED Registration Date: 04/30/18 Care time: The patient presented to the Emergency Department on the above date and was hospitalized for further evaluation of their emergent condition. - New Patient This patient is new to me today: Yes Date on this admission: 05/05/18 - Critical Care Critical Care patient: No
[2018-05-05] MEDS ORDERED: PT OWN MED DRAWER 7, Y5N ONE ×2 (21:36→22:54)
[2018-05-05] MEDS: INSULIN (LEVEMIR) 100 UNITS/ML UNITS SQ SCH (21:46)
[2018-05-05] MEDS: ZOLPIDEM TARTRATE 5 MG TABLET PO PRN (21:47)
[2018-05-06] MEDS: AMPICILLIN NA/SULBACTAM NA 3 GM in SODIUM CHLORIDE 100 ML IVPB SCH ×3 (01:20→17:31)
[2018-05-06] MEDS: INSULIN SLIDING SCALE (NOVOLOG) 1 VIAL SQ SCH ×3 (06:04→16:42)
--- NOTE | 2018-05-06 07:47 | PN ---
Progress Note (short form) - Note Progress Note: Patient seen in bed. No pain. vss, tmax 98.1 +dressing clean dry and intact, +improved cellulitis, -drainage, -foul odor, wound culture preliminary, wbc=11.0, awaiting new labs today normal post op Betadine dressing applied. Awaiting Continue abx as per ID. Read and appreciated ID note and draft. Discussed with ID. Recommending dc with augmentin and following up in wcc.
[2018-05-06] MEDS: LOSARTAN POTASSIUM 50 MG TABLET (FP) PO SCH (09:39)
[2018-05-06] MEDS: NAPH,MB-DB/K PH,MBDB POWDER PACKET PO SCH (09:40)
[2018-05-06] MEDS: ASPIRIN 81 MG CHEWABLE TABLETS PO SCH (09:40)
[2018-05-06 14:10] VITALS: BP 156/87; PULSE 79; TEMP 97.9
--- NOTE | 2018-05-06 14:28 | DS ---
Physical Examination Vital Signs: Vital Signs Temperature 36.6 C 05/06/18 14:05 Pulse Rate 79 05/06/18 14:05 Respiratory Rate 18 05/06/18 14:05 Blood Pressure 156/87 05/06/18 14:05 O2 Sat by Pulse Oximetry (%) 98 05/06/18 09:00 Constitutional: Yes: Well Nourished, No Distress, Calm Cardiovascular: Yes: Regular Rate and Rhythm. No: Gallop, Murmur, Rub Respiratory: Yes: Regular, CTA Bilaterally. No: Rales, Rhonchi, Wheezes Gastrointestinal: Yes: Normal Bowel Sounds, Soft. No: Distention, Tenderness Extremities: Yes: Other (R foot wrapped) Edema: No Labs: CBC, BMP 05/05/18 06:00 05/05/18 06:00 Discharge Summary Reason For Visit: CELLULITIS Current Active Problems Cellulitis (Acute) Dehydration (Acute) HTN (hypertension) (Acute) Hx of insulin dependent diabetes mellitus (Acute) T2DM (type 2 diabetes mellitus) (Acute) Hospital Course: (1) Cellulitis Code(s): L03.90 - CELLULITIS, UNSPECIFIED Qualifiers: Site of cellulitis: extremity Site of cellulitis of extremity: lower extremity Laterality: right Qualified Code(s): L03.115 - Cellulitis of right lower limb (2) Dehydration Code(s): E86.0 - DEHYDRATION (3) HTN (hypertension) Code(s): I10 - ESSENTIAL (PRIMARY) HYPERTENSION (4) T2DM (type 2 diabetes mellitus) Code(s): E11.9 - TYPE 2 DIABETES MELLITUS WITHOUT COMPLICATIONS Mr Leary is a very pleasant 58 year old male who comes in with cellulitis and abscess of the R foot. He was admitted to the hospital and seen by ID and podiatry. On admission he was started on vancomycin and zosyn, podiatry evaluated and he underwent I&D. After I&D he felt much improved. Cultures resulted and was positive for VSE, group B strep, and fusobacterium. He was transitioned to unasyn and continued to do well. Discussed course with ID, safe to transition to augmentin bid for 14 days. He was noted to have hypertension and started on cozaar, this can be adjusted in the outpatient setting. He is currently safe for discharge home. 32 minutes spent in preparation of this discharge Condition: Stable - Instructions Diet, Activity, Other Instructions: diabetic diet. Resume previous activity. Referrals: ON STAFF,NOT [Primary Care Provider] - Sravanthi Crane DPM [Staff Physician] - Hany Jc MD [Staff Physician] - Disposition: HOME - Home Medications Comprehensive Discharge Medication List: Ambulatory Orders Aspirin [ASA -] 162 mg PO DAILY 04/30/18 Diltiazem Cd [Cardizem Cd -] 240 mg PO DAILY 04/30/18 Insulin Degludec [Tresiba Flextouch U-100] 30 unit SQ HS 04/30/18 Meloxicam [Mobic] 15 mg PO DAILY 04/30/18 Semaglutide [Ozempic] 0.25 mg SQ WEEKLY 04/30/18 Tramadol HCl [Ultram] 50 mg PO DAILY 04/30/18 Amox-Tr/K Cl [Augmentin - 875Mg Tablet] 1 tab PO BID #29 tablet 05/06/18 Losartan Potassium [Cozaar -] 50 mg PO DAILY #30 tablet 05/06/18
--- NOTE | 2018-05-06 14:29 | PN ---
Progress Note (short form) - Note Progress Note: feels well Vital Signs Period Temp Pulse Resp BP Sys/Harmon Pulse Ox Last 24 Hr 97.9 F-98.3 F 59-80 18-18 125-156/75-90 98 cor-rrr lungs clear abd soft,nt ext 3 cm incision between the fourth and fifth toe, no erythema, no purulence CBC, BMP 05/05/18 06:00 05/05/18 06:00 Microbiology 05/01/18 12:18 Abscess Gram Stain - Final 05/01/18 12:18 Abscess Wound Culture - Final Fusobacterium Nucleatum Enterococcus Faecalis Strep Agalactiae Group B 04/30/18 12:00 Blood - Peripheral Venous Blood Culture - Final NO GROWTH AFTER 5 DAYS INCUBATION 04/30/18 11:30 Blood - Peripheral Venous Blood Culture - Final NO GROWTH AFTER 5 DAYS INCUBATION esr 8 a/p s/p drainage of abscess DM plan to switch to po augmentin for [address] Jc will see him when he returns to wound care d/w dr frias
== END 2018-05-06 18:40 | disposition home or self-care (01) | DRG 603 ==
LOC: JER 10:04 → JERBED 13:11 → J7W 17:45
PROVIDERS: ADMIT Internal Medicine; ATTEND Internal Medicine
PROC: 0J9Q0ZX Drainage of Right Foot Subcutaneous Tissue and Fascia, Open Approach, Diagnostic (ICD-10-PCS; principal; 2018-05-04)
DX: L02.611 Cutaneous abscess of right foot (principal); L03.115 Cellulitis of right lower limb; I10 Essential (primary) hypertension; E78.5 Hyperlipidemia, unspecified; E86.0 Dehydration; E11.9 Type 2 diabetes mellitus without complications; D72.829 Elevated white blood cell count, unspecified; B95.1 Streptococcus, group B, as the cause of diseases classified elsewhere
CPT/HCPCS: 36415; 73630-TC-LT; 73630-TC-RT-FY; 80048; 80053; 82962; 83036; 83605; 83735; 84100; 85025; 85651; 86140; 87040; 87070; 87186; 87205; 93005; 93010; 93970-TC; 99283-25; G0480; J0131; J7030